=== PATIENT | female | born 1995 | race Caucasian/White ===

== ENCOUNTER 2017-03-05 11:50 | Emergency (ER) | payer SELFPAY ==
[~2017-03-05] VITALS: Ht 172.7 cm; Wt 75.3 kg
[~2017-03-05 11:50] MED LIST: IBUP600 PO; MACR100C PO; OXYC1SOL5 PO; PREN0.01 PO
[2017-03-05 12:02] VITALS: BP 122/70; PULSE 63; RESP 14; TEMP 97.7; O2SAT 98
--- NOTE | 2017-03-05 12:12 | PD ---
HPI Chief Complaint: Musculoskeletal Complaint Time Seen by Provider: 12:09 Travel History International Travel<30 days: No Contact w/Intl Traveler<30days: No Traveled to known affect area: No History of Present Illness HPI 22-year-old female presents to the emergency department for evaluation of left ankle pain. Patient states she was drinking with friends last night and believes she twisted her ankle. Patient states that she had not had pain last night, woke up with pain in her left lateral ankle this morning. Patient has been ambulatory, but with pain. She states that she does not have pain unless she is ambulating, bearing weight. Alleviating factors rest. She has no pain at this exact moment as she is lying a stretcher. No radiation of pain. She has no medical problems and takes no prescribed medications. She denies any chance of . Severity is [id number]. PFSH Past Medical History Hx Anticoagulant Therapy: No Cardiovascular Problems: No Chemotherapy: No Cerebrovascular Accident: No Diabetes: No Diminished Hearing: No Respiratory: No Immunizations Current: Yes ?: Not LMP: 02/26/17 Past Surgical History Hysterectomy: No Oral Surgery: Yes (WISDOM TEETH) Social History Alcohol Use: No Tobacco Use: No Substance Use: No Allergies-Medications (Allergen,Severity, Reaction): Coded Allergies: No Known Allergies (Verified Adverse Reaction, Unknown, 03/05/17) Reported Meds & Prescriptions Reported Meds & Active Scripts Active No Active Prescriptions or Reported Medications Review of Systems Except as stated in HPI: all other systems reviewed are Neg Physical Exam Narrative GENERAL: Well-nourished, well-developed female patient ambulatory. Afebrile., SKIN: Focused skin assessment warm/dry. No lacerations or abrasions. No erythema or warmth over left ankle. HEAD: Normocephalic. Atraumatic. EYES: No scleral icterus. No injection or drainage. NECK: Supple, trachea midline. No JVD or lymphadenopathy. CARDIOVASCULAR: Left pedal pulse 2+. RESPIRATORY: No accessory muscle use. GASTROINTESTINAL: Abdomen soft, non-tender, nondistended. MUSCULOSKELETAL: No cyanosis, or edema. Patient has tenderness over left lateral ankle to palpation. No obvious deformity. Patient has full sensation to the distal left lower extremity. Data Data Last Documented VS Vital Signs Date Time Temp Pulse Resp B/P (MAP) Pulse Ox O2 Delivery O2 Flow Rate FiO2 03/05/17 12:02 97.7 63 14 122/70 (87) 98 Orders Orders Ankle, Complete ([id number]) (03/05/17 ) MDM Medical Decision Making Medical Screen Exam Complete: Yes Emergency Medical Condition: Yes Medical Record Reviewed: Yes Interpretation(s) x-ray of the left ankle - CONCLUSION: Unremarkable examination of the left ankle. Differential Diagnosis Ankle sprain versus fracture versus dislocation Narrative Course 22-year-old female presents to the emergency department for evaluation of left ankle pain. She declines pain medication at this time. X-ray left ankle is ordered and pending. X-ray of the left ankle is unremarkable. Patient is provided Hasmukh bandage. She declines crutches at this time. She'll be discharged with a prescription for ibuprofen. She verbalizes agreement. The patient was discharged in stable condition with instructions, including return instructions and follow up instructions. Diagnosis Primary Impression: Left ankle sprain Qualified Codes: S93.402A - Sprain of unspecified ligament of left ankle, initial encounter Referrals: Primary Care Physician call for appointment Patient Instructions: Ankle Sprain (ED), General Instructions Departure Forms: Tests/Procedures, Work Release Enter return to work date: Mar 06, 2017 Additional Instructions: Wear Hasmukh bandage as needed for support. Take ibuprofen as directed as needed with food for pain. Elevate. Ice for 20 minutes 4-5 times daily. Follow-up with your primary care physician. Return to the emergency department for any acute worsening of symptoms. Med/Other Pt SpecificInfo: Prescription(s) given Scripts Ibuprofen (Ibuprofen) 600 Mg Tab 600 MG PO TID Y for PAIN SCALE 1 TO 10, #21 TAB 0 Refills Prov: KapilEmily 03/05/17 Disposition: 01 DISCHARGE HOME Condition: Stable Emily Dick Mar 05, 2017 12:12
--- NOTE | 2017-03-05 12:56 | RADRPT ---
EXAM DATE/TIME: 03/05/2017 12:25 [facility] COMPARISON: No previous studies available for comparison. INDICATIONS : Left lateral ankle pain, no known injury. MEDICAL HISTORY : None. SURGICAL HISTORY : None. ENCOUNTER: Initial ACUITY: 2 days PAIN SCORE: 5/10 LOCATION: Left lateral ankle FINDINGS: Three view exam was performed of the left ankle. The bony structures are in normal alignment. No ev idence of fracture, dislocation, or soft tissue swelling. The ankle mortise is intact. No radiopaqu e foreign bodies are seen. Bony mineralization is normal. CONCLUSION: Unremarkable examination of the left ankle. Chema Mandel MD on March 05, 2017 at 12:54 Board Certified Radiologist. This report was verified electronically.
[2017-03-05] MEDS ORDERED: IBUP-232 PO (13:03)
== END 2017-03-05 13:14 | disposition home or self-care (01) ==
LOC: PHEFT 11:50
DX: S93.402A Sprain of unspecified ligament of left ankle, initial encounter (principal); X58.XXXA Exposure to other specified factors, initial encounter
CPT/HCPCS: 73610; 99283; E0113

== ENCOUNTER 2017-06-17 11:43 | Emergency (ER) | payer OTHER ==
[~2017-06-17] VITALS: Ht 172.7 cm; Wt 75.0 kg
[~2017-06-17 11:43] MED LIST changes: +IBUP-232 PO; -IBUP600 PO; -MACR100C PO; -OXYC1SOL5 PO; -PREN0.01 PO
[2017-06-17 11:45] VITALS: BP 118/58; PULSE 65; RESP 18; TEMP 97.8; O2SAT 98
[2017-06-17] MEDS ORDERED: SODIUM CHLOR 0.9% 1000 ML INJ 1,000 ML IV SCH (11:58)
[2017-06-17] MEDS ORDERED: KETOROLAC TROMETHAMINE 30 MG/ML (IVP) VIAL IVP ONE (12:00)
[2017-06-17 12:18] LABS: AUTOMATED NEUTROPHIL # 5.7 TH/MM3 (1.8-7.7); BASOPHIL % 0.6 % (0.0-2.0); EOSINOPHIL # 0.1 TH/MM3 (0-0.4); EOSINOPHIL % 1.8 % (0.0-4.0); HEMATOCRIT 46.2 % (35.0-46.0); HEMOGLOBIN 15.2 GM/DL (11.6-15.3); LYMPH % 12.6 % (9.0-44.0); LYMPHOCYTE # 0.9 TH/MM3 (1.0-4.8); MEAN CELL VOLUME 86.1 FL (80.0-100.0); MEAN CORPUSCULAR HEMOGLOBIN 28.3 PG (27.0-34.0); MEAN CORPUSCULAR HGB CONC 32.9 % (32.0-36.0); MEAN PLATELET VOLUME 10.1 FL (7.0-11.0); MONO % 7.8 % (0.0-8.0); MONOCYTE # 0.6 TH/MM3 (0-0.9); NEUT % 77.2 % (16.0-70.0); PLATELET COUNT 200 TH/MM3 (150-450); RED BLOOD COUNT 5.37 MIL/MM3 (4.00-5.30); RED CELL DISTRIBUTION WIDTH 12.2 % (11.6-17.2); WHITE BLOOD COUNT 7.3 TH/MM3 (4.0-11.0)
--- NOTE | 2017-06-17 12:18 | PD ---
HPI Chief Complaint: Back/ Neck Pain or Injury Time Seen by Provider: 11:53 Travel History International Travel<30 days: No Contact w/Intl Traveler<30days: No Traveled to known affect area: No History of Present Illness HPI 22-year-old female that presents to the ED for evaluation of back pain. Per patient the back pain started today. She is having some nausea and vomiting as well. Per patient she denies or vaginal discharge. Per patient she' s had kidney infections in the past and states that he feels somewhat similar to that. She denies any urinary symptoms. Symptoms just started today. She also states that she's been having some fevers and chills. No bowel movement issues. Back pain is mostly to the mid back. She states that is aching and comes and goes. Per patient when the pain comes when the nausea and vomiting started. Denies any history of kidney stones. Pain per patient is 7 out of 10. No allergies to medication. Other medical issues. PFSH Past Medical History Hx Anticoagulant Therapy: No Cardiovascular Problems: No Chemotherapy: No Cerebrovascular Accident: No Diabetes: No Diminished Hearing: No Respiratory: No Immunizations Current: Yes Influenza Vaccination: Yes ?: Not LMP: 06/2017 Past Surgical History Hysterectomy: No Oral Surgery: Yes (WISDOM TEETH) Social History Alcohol Use: Yes (2x weekly) Tobacco Use: Yes (1/2PPD) Substance Use: No Allergies-Medications (Allergen,Severity, Reaction): Coded Allergies: No Known Allergies (Verified Adverse Reaction, Unknown, 03/05/17) Reported Meds & Prescriptions Reported Meds & Active Scripts Active Azithromycin 250 Mg Tab 250 Mg PO DIRECTED Take 2 tabs (500 mg) on day 1 then 1 tab daily x [address] (Diclofenac Sodium) 75 Mg Tabdr 75 Mg PO BID PRN Robaxin (Methocarbamol) 500 Mg Tab 500 Mg PO QID Zofran Odt (Ondansetron Odt) 4 Mg Tab 4 Mg SL Q6HR PRN Ibuprofen 600 Mg Tab 600 Mg PO TID PRN Review of Systems Except as stated in HPI: all other systems reviewed are Neg Physical Exam Narrative GENERAL: SKIN: Warm and dry. HEAD: Atraumatic. Normocephalic. EYES: Pupils equal and round. No scleral icterus. No injection or drainage. ENT: No nasal bleeding or discharge. Mucous membranes pink and moist. NECK: Trachea midline. No JVD. CARDIOVASCULAR: Regular rate and rhythm. RESPIRATORY: No accessory muscle use. Clear to auscultation. Breath sounds equal bilaterally. GASTROINTESTINAL: Abdomen soft, non-tender, nondistended. Hepatic and splenic margins not palpable. Patient does have reproducible pain on the CVA area. No obvious deformity. No lumbar, thoracic, cervical spine tenderness to palpation. MUSCULOSKELETAL: Extremities without clubbing, cyanosis, or edema. No obvious deformities. NEUROLOGICAL: Awake and alert. No obvious cranial nerve deficits. Motor grossly within normal limits. Five out of 5 muscle strength in the arms and legs. Normal speech. PSYCHIATRIC: Appropriate mood and affect; insight and judgment normal. Data Data Last Documented VS Vital Signs Date Time Temp Pulse Resp B/P (MAP) Pulse Ox O2 Delivery O2 Flow Rate FiO2 06/17/17 11:45 97.8 65 18 118/58 (78) 98 Orders Orders Urinalysis - C+S If Indicated (06/17/17 11:44) Ed Urine Pregnancytest Poc (06/17/17 11:44) Basic Metabolic Panel (Bmp) (06/17/17 11:58) Complete Blood Count With Diff (06/17/17 11:58) Lactic Acid (06/17/17 11:58) Iv Access Insert/Monitor (06/17/17 11:58) Sodium Chlor 0.9% 1000 Ml Inj (Ns 1000 M (06/17/17 11:58) Ketorolac Inj (Toradol Inj) (06/17/17 12:00) Ct Abd/Pel W/O Iv Contrast (06/17/17 ) Labs Laboratory Tests Test 06/17/17 11:50 06/17/17 12:05 Urine Collection Type CLEAN CATCH Urine Color YELLOW Urine Turbidity CLEAR Urine pH 6.0 Urine Specific [place] 1.020 Urine Protein NEG mg/dL Urine Glucose (UA) NEG mg/dL Urine Ketones NEG mg/dL Urine Occult Blood NEG Urine Nitrite NEG Urine Bilirubin NEG Urine Urobilinogen 0.2 MG/DL Urine Leukocyte Esterase NEG Urine RBC 0-3 /hpf Urine WBC 0-2 /hpf Urine Squamous Epithelial Cells 6-8 /hpf Urine Amorphous Sediment MOD Microscopic Urinalysis Comment CULT NOT INDICATED Urine Collection Time 1150 White Blood Count 7.3 TH/MM3 Red Blood Count 5.37 MIL/MM3 Hemoglobin 15.2 GM/DL Hematocrit 46.2 % Mean Corpuscular Volume 86.1 FL Mean Corpuscular Hemoglobin 28.3 PG Mean Corpuscular Hemoglobin Concent 32.9 % Red Cell Distribution Width 12.2 % Platelet Count 200 TH/MM3 Mean Platelet Volume 10.1 FL Neutrophils (%) (Auto) 77.2 % Lymphocytes (%) (Auto) 12.6 % Monocytes (%) (Auto) 7.8 % Eosinophils (%) (Auto) 1.8 % Basophils (%) (Auto) 0.6 % Neutrophils # (Auto) 5.7 TH/MM3 Lymphocytes # (Auto) 0.9 TH/MM3 Monocytes # (Auto) 0.6 TH/MM3 Eosinophils # (Auto) 0.1 TH/MM3 Basophils # (Auto) 0.0 TH/MM3 CBC Comment DIFF FINAL Differential Comment Blood Urea Nitrogen 14 MG/DL Random Glucose 86 MG/DL Calcium Level 8.7 MG/DL Sodium Level 139 MEQ/L Potassium Level 4.0 MEQ/L Chloride Level 104 MEQ/L Carbon Dioxide Level 27.1 MEQ/L Anion Gap 8 MEQ/L Lactic Acid Level 0.7 mmol/L [facility] Medical Decision Making Medical Screen Exam Complete: Yes Emergency Medical Condition: Yes Medical Record Reviewed: Yes Interpretation(s) CBC & BMP Diagram 06/17/17 12:[address] negative UA negative lactic acid WNL Differential Diagnosis Muscle strain versus pyelonephritis versus UTI versus dehydration versus kidney infection Narrative Course 22-year-old female that presents to the ED for evaluation of bilateral flank pain. Patient was properly examined and was found to have signs and symptoms consistent appears to be possible kidney infection. She does have a history of this in the past and the review her records and she had similar symptoms in 2012. Labs and urine were ordered. Patient was started on IV fluids as well as Toradol and Zofran. test was negative. Labs showed no sign of acute disease. Unclear etiology of the back pain but this appears to be in possible muscular. Patient was noted to have a cough here while in the ED. Patient does tell me that she's been having 2 weeks of cold-like symptoms and per patient she's been feeling better from the standpoint of the cough continues. She does not have a WBC count elevation but she does have a elevated lymphocytes. Could be related to upper respiratory infection. There is no sign of hydronephrosis or infection at all on the CAT scan. Pain is reproducible with touch and this muscles of the thoracic area. Patient didn't get relief with Toradol. Fluids given. The femoral recommend trial of muscle relaxants and anti-inflammatories as well as antibiotics to cover for upper respiratory infection. Patient was told to follow closely with PCP. See ED for any worsening symptoms. Diagnosis Primary Impression: Back pain Qualified Codes: M54.5 - Low back pain Additional Impression: URI (upper respiratory infection) Qualified Codes: J06.9 - Acute upper respiratory infection, unspecified Patient Instructions: General Instructions Additional Instructions: You can use [id number] antihistamine as well as well as Mucinex as needed for runny nose and congestion. Cough drops for cough as needed. Drink plenty of fluids. Follow-up with PCP. See ED for worsening symptoms. Med/Other Pt SpecificInfo: Prescription(s) given Scripts Azithromycin (Azithromycin) 250 Mg Tab 250 MG PO DIRECTED for Infection, #6 TAB 0 Refills Take 2 tabs (500 mg) on day 1 then 1 tab daily x 4 days. Prov: Freddy Mahan MD 06/17/[address] (Diclofenac Sodium DR) 75 Mg Tabdr 75 MG PO BID Y for PAIN SCALE 1 TO 10, #20 TAB 0 Refills Prov: Freddy Mahan MD 06/17/17 Methocarbamol (Robaxin) 500 Mg Tab 500 MG PO QID for Muscle Spasm, #15 TAB 0 Refills Prov: Freddy Mahan MD 06/17/17 Ondansetron Odt (Zofran Odt) 4 Mg Tab 4 MG SL Q6HR Y for Nausea/Vomiting, #15 TAB 0 Refills Prov: Freddy Mahan MD 06/17/17 Disposition: 01 DISCHARGE HOME Condition: Stable Yoandy Yañez Jun 17, 2017 12:18
[2017-06-17 12:28] LABS: BILIRUBIN, URINE NEG (NEG); BLOOD, URINE NEG (NEG); GLUCOSE,URINE NEG (NEG); KETONE, URINE NEG (NEG); NITRITE,URINE NEG (NEG); URINE COLOR YELLOW (YELLW/STRAW); URINE LEUKOCYTE ESTERASE NEG (NEG)
[2017-06-17 12:46] LABS: AMORPHOUS SEDIMENT, URINE MOD; RBC, URINE 0-3 /hpf (0-3); WBC, URINE 0-2 /hpf (0-5)
[2017-06-17 12:56] LABS: CALCIUM 8.7 MG/DL (8.5-10.1)
[2017-06-17 12:57] LABS: BICARBONATE 27.1 MEQ/L (21.0-32.0)
--- NOTE | 2017-06-17 12:57 | RADRPT ---
EXAM DATE/TIME: 06/17/2017 12:45 [facility] COMPARISON: No previous studies available for comparison. INDICATIONS : Bilateral flank pain. ORAL CONTRAST: No oral contrast ingested. RADIATION DOSE: 12.60 CTDIvol (mGy) MEDICAL HISTORY : None SURGICAL HISTORY : section. ENCOUNTER: Initial ACUITY: 1 day PAIN SCALE: 4/10 LOCATION: Bilateral flank TECHNIQUE: Volumetric scanning of the abdomen and pelvis was performed. Using automated exposure control and ad justment of the mA and/or kV according to patient size, radiation dose was kept as low as reasonably achievable to obtain optimal diagnostic quality images. DICOM format image data is available electro nically for review and comparison. FINDINGS: LOWER LUNGS: The visualized lower lungs are clear. LIVER: Homogeneous density without lesion. There is no dilation of the biliary tree. No calcified gallston es. SPLEEN: Normal size without lesion. PANCREAS: Within normal limits. KIDNEYS: Normal in size and shape. There is no mass, stone, or hydronephrosis. ADRENAL GLANDS: Within normal limits. VASCULAR: There is no aortic aneurysm. BOWEL/MESENTERY: The stomach, small bowel, and colon demonstrate no acute abnormality. There is no free intraperitone al air or fluid. ABDOMINAL WALL: Within normal limits. RETROPERITONEUM: There is no lymphadenopathy. BLADDER: No wall thickening or mass. REPRODUCTIVE: Within normal limits. INGUINAL: There is no lymphadenopathy or hernia. MUSCULOSKELETAL: Within normal limits for patient age. CONCLUSION: No acute disease. Jordan Winslow MD on June 17, 2017 at 12:54 Board Certified Radiologist. This report was verified electronically.
[2017-06-17] MEDS ORDERED: ROBA500T PO (12:59)
[2017-06-17] MEDS ORDERED: DICL75TA PO (12:59)
[2017-06-17] MEDS ORDERED: ZOFR4TAB3 SL (12:59)
[2017-06-17] MEDS ORDERED: AZIT250T3 PO (12:59)
[2017-06-17 13:00] LABS: CREATININE 0.71 MG/DL (0.50-1.00)
[2017-06-17 13:15] VITALS: BP 105/52
== END 2017-06-17 13:22 | disposition home or self-care (01) ==
LOC: PHEFT 11:43
DX: M54.5 Low back pain (principal); J06.9 Acute upper respiratory infection, unspecified; R11.2 Nausea with vomiting, unspecified; Z72.0 Tobacco use
CPT/HCPCS: 74176; 80048; 81001; 83605; 84703; 85025; 96374; 99284; J1885; J7030

== ENCOUNTER 2017-06-19 18:22 | Emergency (ER) | payer OTHER ==
[~2017-06-19] VITALS: Ht 175.3 cm; Wt 73.0 kg
[~2017-06-19 18:22] MED LIST changes: +AZIT250T3 PO; +DICL75TA PO; +ROBA500T PO; +ZOFR4TAB3 SL
[2017-06-19 18:30] VITALS: BP 119/78; PULSE 74; RESP 16; TEMP 98.5; O2SAT 97
[2017-06-19 19:27] VITALS: BP 119/78; PULSE 74; RESP 16
[2017-06-19 19:28] LABS: BILIRUBIN, URINE NEG (NEG); BLOOD, URINE NEG (NEG); GLUCOSE,URINE NEG (NEG); KETONE, URINE 15 mg/dL (NEG); NITRITE,URINE NEG (NEG); URINE COLOR YELLOW (YELLW/STRAW); URINE LEUKOCYTE ESTERASE SMALL (NEG)
[2017-06-19 19:37] LABS: RBC, URINE 0-3 /hpf (0-3); WBC, URINE 0-2 /hpf (0-5)
[2017-06-19] MEDS ORDERED: METR-1 PO (19:46)
[2017-06-19] MEDS ORDERED: CIPR500T2 PO (19:46)
[2017-06-19] MEDS ORDERED: PROM25TA10 PO (19:46)
--- NOTE | 2017-06-19 19:46 | PD ---
HPI Chief Complaint: GI Complaint Time Seen by Provider: 19:00 Travel History International Travel<30 days: No Contact w/Intl Traveler<30days: No Traveled to known affect area: No History of Present Illness HPI Patient is a 22-year-old female second presentation to the emergency department in the past week, she stating that she still having continued nausea vomiting diarrhea, a few days ago she was here with back pain had a fairly complete workup with a CBC CMP and a CAT scan of her abdomen and all of which were reassuring and the CAT scan of her abdomen showed no acute pathology. Patient states that her back pain is completely resolved but she still having nausea vomiting diarrhea, patient also is stating that multiple family members have been sick recently but there nausea vomiting had gone away over a 24-hour. The patient continues to have nausea vomiting diarrhea. She is on azithromycin which was started for some upper respiratory symptoms last time she was here. Patient denies any fevers denies any chest pain abdominal pain or constipation. Denies any blood in the emesis or blood in the stool. No vaginal bleeding or vaginal discharge PFSH Past Medical History Hx Anticoagulant Therapy: No Cardiovascular Problems: No Chemotherapy: No Cerebrovascular Accident: No Diabetes: No Diminished Hearing: No Respiratory: No Immunizations Current: Yes Influenza Vaccination: Yes ?: Not Past Surgical History Hysterectomy: No Oral Surgery: Yes (WISDOM TEETH) Social History Alcohol Use: Yes (2x weekly) Tobacco Use: Yes (1PPD) Substance Use: No Allergies-Medications (Allergen,Severity, Reaction): Coded Allergies: No Known Allergies (Verified Adverse Reaction, Unknown, 06/19/17) Reported Meds & Prescriptions Reported Meds & Active Scripts Active Phenergan (Promethazine HCl) 25 Mg Tablet 25 Mg PO Q6H PRN Flagyl (Metronidazole) 500 Mg Tab 500 Mg PO BID 7 Days Ciprofloxacin (Ciprofloxacin HCl) 500 Mg Tab 500 Mg PO BID 7 Days Azithromycin 250 Mg Tab 250 Mg PO DIRECTED Take 2 tabs (500 mg) on day 1 then 1 tab daily x [address] (Diclofenac Sodium) 75 Mg Tabdr 75 Mg PO BID PRN Robaxin (Methocarbamol) 500 Mg Tab 500 Mg PO QID Zofran Odt (Ondansetron Odt) 4 Mg Tab 4 Mg SL Q6HR PRN Ibuprofen 600 Mg Tab 600 Mg PO TID PRN Review of Systems Except as stated in HPI: all other systems reviewed are Neg Physical Exam Narrative GENERAL: Well-developed well-nourished, quite pleasant in no obvious distress peer SKIN: Focused skin assessment warm/dry. HEAD: Atraumatic. Normocephalic. EYES: Pupils equal and round. No scleral icterus. No injection or drainage. ENT: No nasal bleeding or discharge. Mucous membranes pink and moist. NECK: Trachea midline. No JVD. CARDIOVASCULAR: Regular rate and rhythm. No murmur appreciated. RESPIRATORY: No accessory muscle use. Clear to auscultation. Breath sounds equal bilaterally. GASTROINTESTINAL: Abdomen soft, non-tender, nondistended. Hepatic and splenic margins not palpable. MUSCULOSKELETAL: No obvious deformities. No clubbing. No cyanosis. No edema. NEUROLOGICAL: Awake and alert. No obvious cranial nerve deficits. Motor grossly within normal limits. Normal speech. PSYCHIATRIC: Appropriate mood and affect; insight and judgment normal. Data Data Last Documented VS Vital Signs Date Time Temp Pulse Resp B/P (MAP) Pulse Ox O2 Delivery O2 Flow Rate FiO2 06/19/17 19:56 68 16 108/62 (77) 99 06/19/17 18:30 98.5 Orders Orders Urinalysis - C+S If Indicated (06/19/17 18:59) Ed Urine Pregnancytest Poc (06/19/17 18:59) Urine Culture (06/19/17 19:19) Promethazine (Phenergan) (06/19/17 20:00) Ed Discharge Order (06/19/17 19:59) Labs Laboratory Tests Test 06/19/17 19:19 Urine Color YELLOW Urine Turbidity CLEAR Urine pH 7.0 Urine Specific [place] 1.015 Urine Protein TRACE mg/dL Urine Glucose (UA) NEG mg/dL Urine Ketones 15 mg/dL Urine Occult Blood NEG Urine Nitrite NEG Urine Bilirubin NEG Urine Urobilinogen 1.0 MG/DL Urine Leukocyte Esterase SMALL Urine RBC 0-3 /hpf Urine WBC 0-2 /hpf Urine Squamous Epithelial Cells 6-8 /hpf Microscopic Urinalysis Comment CULTURE INDICATED MDM Medical Decision Making Medical Screen Exam Complete: Yes Emergency Medical Condition: Yes Differential Diagnosis Gastritis, gastroneuritis, foodborne illness, acute abdomen highly unlikely, , urinary tract infection Narrative Course Patient room to the emergency department, I reviewed the CAT scan results from June 17 and they do not show any pathology, specifically no kidney stone and no appendicitis. Labs reviewed from the same time show normal white count normal hemoglobin normal platelets, differential was unremarkable, and her chemistry was completely benign at that time a lactic acid was negative. Her UA and urine test is negative here today, the urine is contaminated with small leukocyte esterase and nitrate negative. Patient was reassured, given the complete workup I recommended the following course for her: Discontinue azithromycin at this time as her upper respiratory symptoms are likely viral in nature, give 48 hours of probiotics/yogurt and see if her diarrhea clears on its own, push p.o. hydration, if this is unsuccessful and start Cipro and Flagyl for the next week, is still unsuccessful follow-up with a primary care physician or can return to the emergency department. Discussed other symptomatic management return to ED criteria. She is stable for discharge this time and no indication for further workup. Diagnosis Primary Impression: Diarrhea Additional Impression: Nausea & vomiting Med/Other Pt SpecificInfo: Prescription(s) given Scripts Promethazine (Phenergan) 25 Mg Tablet 25 MG PO Q6H Y for NAUSEA OR VOMITING, #20 TAB 0 Refills Prov: Norman Sloan MD 06/19/17 Metronidazole (Flagyl) 500 Mg Tab 500 MG PO BID for Infection for 7 Days, #14 TAB 0 Refills Prov: Norman Sloan MD 06/19/17 Ciprofloxacin (Ciprofloxacin) 500 Mg Tab 500 MG PO BID for Infection for 7 Days, #14 TAB 0 Refills Prov: Norman Sloan MD 06/19/17 Disposition: 01 DISCHARGE HOME Condition: Stable Norman Sloan MD Jun 19, 2017 19:46
[2017-06-19 19:56] VITALS: BP 108/62
[2017-06-19] MEDS ORDERED: PROMETHAZINE HCL 25 MG TAB PO ONE (20:00)
== END 2017-06-19 20:16 | disposition home or self-care (01) ==
LOC: PHED 18:22
DX: R19.7 Diarrhea, unspecified (principal); B96.89 Other specified bacterial agents as the cause of diseases classified elsewhere; F17.210 Nicotine dependence, cigarettes, uncomplicated
CPT/HCPCS: 81001; 84703; 87086; 99283; Q0169